=== PATIENT | female | born 1990 | race African-American/Black ===

== ENCOUNTER 2017-04-23 07:41 | Emergency (ER) | payer MEDICAID | END 2017-04-23 09:58 | disposition home or self-care (01) | LOC: D.ER 07:41 | DX: J06.9 Acute upper respiratory infection, unspecified (principal); H66.91 Otitis media, unspecified, right ear; F17.200 Nicotine dependence, unspecified, uncomplicated ==

== ENCOUNTER 2017-12-05 21:05 | Emergency (ER) | payer MEDICAID ==
[~2017-12-05] VITALS: Ht 162.6 cm; Wt 68.2 kg
[2017-12-05 21:29] VITALS: Ht 162.6 cm; Wt 68.2 kg
[2017-12-05 21:55] LABS: BASOPHILS 0.9 % (0-2); EOSINOPHILS 4.9 % (0-7); HEMATOCRIT 38.6 % (36.0-48.0); HEMOGLOBIN 12.7 g/dL (12-16); IMMATURE GRANULOCYTES 0.2 % (0-5); LYMPHOCYTES 48.1 % (15-50); MCH 30.8 pg (26.0-34.0); MCHC 32.9 g/dL (31.0-37.0); MCV 93.5 fL (80.0-100.0); MONOCYTES 7.9 % (2-11); PLATELET COUNT 226 10x3/uL (130-400); RBC 4.13 10x6/uL (4.00-5.40); WBC 5.7 10x3/uL (4.8-10.8)
[2017-12-05 22:00] LABS: HCG SERUM POSITIVE (NEGATIVE)
[2017-12-05 22:04] LABS: APPEARANCE CLOUDY (CLEAR); BILIRUBIN NEGATIVE (NEGATIVE); COLOR PINK (YELLOW); GLUCOSE NEGATIVE (NEGATIVE); KETONE NEGATIVE (NEGATIVE); NITRITE NEGATIVE (NEGATIVE); PROTEIN NEGATIVE (NEGATIVE); UROBILINOGEN NORMAL (NORMAL)
[2017-12-05 22:08] LABS: BACTERIA MODERATE /hpf (NONE SEEN); RED CELLS - URINE >50 /hpf (0-5)
[2017-12-05 22:09] LABS: ALBUMIN 3.7 g/dL (3.4-5.0); ALKALINE PHOSPHATASE 61 U/L (46-116); ALT (SGPT) 16 U/L (10-68); CALC OSMOLALITY 277 mosm/kg (275-300); CALCIUM 8.7 mg/dL (8.5-10.1); CARBON DIOXIDE 30.3 mmol/L (21.0-32.0); CHLORIDE - SERUM 104 mmol/L (98-107); CREATININE - SERUM 0.9 mg/dL (0.6-1.3); GLUCOSE 82 mg/dL (74-106); PROTEIN - SERUM 7.8 g/dL (6.4-8.2); SODIUM 139 mmol/L (136-145); UREA NITROGEN 16 mg/dL (7-18); eGFR NON AFRICAN AMERICAN 79 mL/min (90-120)
[2017-12-05 23:48] VITALS: BP 127/89
== END 2017-12-05 23:49 | disposition home or self-care (01) ==
LOC: D.ER 21:05
PROVIDERS: Family Medicine
DX: O03.9 Complete or unspecified spontaneous abortion without complication (principal)

== ENCOUNTER 2017-12-24 20:27 | Emergency (ER) | payer MEDICAID ==
[~2017-12-24] VITALS: Ht 162.6 cm; Wt 68.2 kg
[2017-12-24 20:53] VITALS: Ht 162.6 cm; Wt 68.2 kg
[2017-12-24 22:00] LABS: APPEARANCE CLEAR (CLEAR); BILIRUBIN NEGATIVE (NEGATIVE); COLOR YELLOW (YELLOW); GLUCOSE NEGATIVE (NEGATIVE); KETONE NEGATIVE (NEGATIVE); NITRITE NEGATIVE (NEGATIVE); PROTEIN TRACE mg/dL (NEGATIVE); UROBILINOGEN NORMAL (NORMAL)
[2017-12-24 22:01] LABS: BACTERIA MANY /hpf (NONE SEEN); EPITHELIAL CELLS 0-5 /hpf (0-5); MUCUS <1+ /lpf (NONE SEEN)
[2017-12-24 22:07] LABS: BASOPHILS 0.5 % (0-2); EOSINOPHILS 5.6 % (0-7); HEMATOCRIT 35.9 % (36.0-48.0); HEMOGLOBIN 11.9 g/dL (12-16); IMMATURE GRANULOCYTES 0.2 % (0-5); LYMPHOCYTES 48.8 % (15-50); MCH 30.9 pg (26.0-34.0); MCHC 33.1 g/dL (31.0-37.0); MCV 93.2 fL (80.0-100.0); MEAN PLATELET VOLUME 10.5 fL (7.4-10.4); MONOCYTES 7.3 % (2-11); NEUTROPHILS 37.6 % (40-80); PLATELET COUNT 227 10x3/uL (130-400); RBC 3.85 10x6/uL (4.00-5.40); RDW 13.5 % (11.5-14.5); WBC 6.5 10x3/uL (4.8-10.8)
[2017-12-24 22:28] LABS: HCG SERUM POSITIVE (NEGATIVE)
[2017-12-24 22:30] LABS: ALBUMIN 3.6 g/dL (3.4-5.0); ANION GAP 7.8 mmol/L (8-16); BILIRUBIN - TOTAL 0.31 mg/dL (0.2-1.3); CARBON DIOXIDE 30.3 mmol/L (21.0-32.0); CREATININE - SERUM 1.2 mg/dL (0.6-1.3); POTASSIUM - SERUM 4.1 mmol/L (3.5-5.1); PROTEIN - SERUM 7.3 g/dL (6.4-8.2)
[2017-12-24] MEDS ORDERED: FLAGYL500 MG PO (23:32)
[2017-12-24] MEDS ORDERED: MACROBID100 MG PO (23:32)
[2017-12-25 01:25] VITALS: BP 124/77
== END 2017-12-25 01:27 | disposition home or self-care (01) ==
LOC: D.ER 20:27
PROVIDERS: Emergency Medicine
DX: O03.9 Complete or unspecified spontaneous abortion without complication (principal)

== ENCOUNTER 2018-05-26 10:32 | Emergency (ER) | payer MEDICAID ==
[~2018-05-26] VITALS: Ht 162.6 cm; Wt 66.4 kg
[~2018-05-26 10:32] MED LIST: FLAGYL500 MG PO; MACROBID100 MG PO
[2018-05-26 10:47] VITALS: BP 112/66; Ht 162.6 cm; Wt 66.4 kg
[2018-05-26] MEDS ORDERED: NEURONTIN 300300 MG PO (13:11)
[2018-05-26] MEDS ORDERED: TORADOL10 MG PO (13:11)
== END 2018-05-26 13:32 | disposition home or self-care (01) ==
LOC: D.ER 10:32
DX: M54.16 Radiculopathy, lumbar region (principal); F17.200 Nicotine dependence, unspecified, uncomplicated

== ENCOUNTER 2018-08-16 14:38 | Emergency (ER) | payer MEDICAID ==
[~2018-08-16] VITALS: Ht 162.6 cm; Wt 68.2 kg
[~2018-08-16 14:38] MED LIST changes: +NEURONTIN 300300 MG PO; +TORADOL10 MG PO
[2018-08-16 14:48] VITALS: BP 109/67; Ht 162.6 cm; Wt 68.2 kg
[2018-08-16] MEDS ORDERED: PRENAVITE1 TAB PO (14:54)
== END 2018-08-16 17:10 | disposition home or self-care (01) ==
LOC: D.ER 14:38
DX: O26.891 Other specified pregnancy related conditions, first trimester (principal); Z3A.11 11 weeks gestation of pregnancy; K59.00 Constipation, unspecified

== ENCOUNTER 2019-01-25 16:09 | Inpatient (IN) | payer MEDICAID ==
[~2019-01-25] VITALS: Ht 162.6 cm; Wt 68.2 kg
[~2019-01-25 16:09] MED LIST changes: +PRENAVITE1 TAB PO
[2019-01-25 16:59] LABS: BASOPHILS 0.3 % (0-2); HEMATOCRIT 35.4 % (36.0-48.0); IMMATURE GRANULOCYTES 0.2 % (0-5); LYMPHOCYTES 47.3 % (15-50); MCH 30.2 pg (26.0-34.0); MCHC 33.9 g/dL (31.0-37.0); MCV 89.2 fL (80.0-100.0); MEAN PLATELET VOLUME 11.4 fL (7.4-10.4); MONOCYTES 7.9 % (2-11); NEUTROPHILS 39.3 % (40-80); PLATELET COUNT 204 10x3/uL (130-400); RBC 3.97 10x6/uL (4.00-5.40); RDW 13.9 % (11.5-14.5); WBC 6.1 10x3/uL (4.8-10.8)
[2019-01-25 17:11] LABS: ALBUMIN 3.6 g/dL (3.4-5.0); ALKALINE PHOSPHATASE 65 U/L (46-116); ALT (SGPT) 17 U/L (10-68); CALC OSMOLALITY 277 mosm/kg (275-300); CARBON DIOXIDE 27.8 mmol/L (21.0-32.0); CHLORIDE - SERUM 104 mmol/L (98-107); CREATININE - SERUM 0.8 mg/dL (0.6-1.3); GLUCOSE 94 mg/dL (74-106); PROTEIN - SERUM 7.3 g/dL (6.4-8.2); SODIUM 138 mmol/L (136-145); UREA NITROGEN 17 mg/dL (7-18); eGFR NON AFRICAN AMERICAN 90 mL/min (90-120)
[2019-01-25 17:15] LABS: AMYLASE - SERUM 87 U/L (25-115); LIPASE 89 U/L (73-393); TROPONIN-I < 0.017 ng/mL (0.000-0.060)
[2019-01-25 17:26] LABS: APPEARANCE CLEAR (CLEAR); BILIRUBIN NEGATIVE (NEGATIVE); COLOR YELLOW (YELLOW); GLUCOSE NEGATIVE (NEGATIVE); KETONE NEGATIVE (NEGATIVE); NITRITE NEGATIVE (NEGATIVE); PROTEIN NEGATIVE (NEGATIVE); UROBILINOGEN NORMAL (NORMAL)
[2019-01-25 17:28] LABS: BACTERIA FEW /hpf (NEGATIVE); EPITHELIAL CELLS 0-5 /hpf (0-5); RED CELLS - URINE OCC /hpf (0-5); WHITE CELLS - URINE OCC /hpf (NEGATIVE)
[2019-01-25 17:41] LABS: HCG URINE NEGATIVE (NEGATIVE)
--- NOTE | 2019-01-25 18:30 | NUR ---
ASSUMED CARE OF PT. LABS DRAWN WHILE PT AWAITING BED IN WR
[2019-01-25 18:45] VITALS: BP 127/84
--- NOTE | 2019-01-25 19:11 | NUR ---
BS REPORT TO LELA BELLAMY
--- NOTE | 2019-01-25 22:07 | NUR ---
PATIENT IN BED WRAPPED IN BLANKETS CRYING, REASSURANCE GIVEN. NO DISTRESS AT THIS TIME. PATIETN TALKING TO HER FAMILY ON PHONE, NO ACUTE DISTRESS.
[2019-01-26 02:22] VITALS: BP 118/64; BMI 25.8
--- NOTE | 2019-01-26 02:30 | NUR ---
PT ARRIVED TO FLOOR AOX4, NO SIGNS OF DISTRESS. STATES NO PAIN AT THIS TIME BUT ORIGINALLY CAME IN FOR ABD PAIN TO RIGHT SIDE. IV RIGHT AC, FLUSHES EASILY. STARTED INFUSING NS @ 100 AND MERREM IVPB. EDUCATED PT ON BEING NPO, PT SCARED SHE IS GOING TO HAVE SURGERY. REASSURED PT THAT THERE WAS NO SURGERY SCHEDULED AND SHE WILL SPEAK WITH SURGEON IN MORNING. VERBALIZED UNDERSTANDING. ORIENTED TO CALL LIGHT. PT AMBULATED INDEPENDENTLY WITHOUT DIFFICULTY TO BATHROOM TO VOID. DENIES NEEDS. LYING ON STOMACH WITH BLANKET OVER HEAD STATING SHE IS TIRED AND GOING TO SLEEP. CL IN REACH, WILL CTM
[2019-01-26 06:00] VITALS: BP 98/55
[2019-01-26 06:34] LABS: INR 0.97 (0.85-1.17); PROTIME 12.4 SECONDS (11.6-15.0)
[2019-01-26 06:43] LABS: BASOPHILS 0.4 % (0-2); CALC OSMOLALITY 281 mosm/kg (275-300); CALCIUM 8.5 mg/dL (8.5-10.1); CARBON DIOXIDE 27.5 mmol/L (21.0-32.0); CHLORIDE - SERUM 107 mmol/L (98-107); CREATININE - SERUM 0.7 mg/dL (0.6-1.3); EOSINOPHILS 6.2 % (0-7); GLUCOSE 80 mg/dL (74-106); HEMATOCRIT 35.3 % (36.0-48.0); IMMATURE GRANULOCYTES 0.2 % (0-5); LYMPHOCYTES 43.5 % (15-50); MCH 30.1 pg (26.0-34.0); MCV 88.5 fL (80.0-100.0); MEAN PLATELET VOLUME 11.6 fL (7.4-10.4); MONOCYTES 10.1 % (2-11); NEUTROPHILS 39.6 % (40-80); PLATELET COUNT 219 10x3/uL (130-400); POTASSIUM - SERUM 4.1 mmol/L (3.5-5.1); RBC 3.99 10x6/uL (4.00-5.40); RDW 13.8 % (11.5-14.5); SODIUM 142 mmol/L (136-145); WBC 4.8 10x3/uL (4.8-10.8); eGFR NON AFRICAN AMERICAN > 90 mL/min (90-120)
[2019-01-26 06:44] LABS: UREA NITROGEN 12 mg/dL (7-18)
[2019-01-26 08:57] VITALS: BP 101/65
[2019-01-26 10:24] VITALS: Ht 162.6 cm; Wt 68.2 kg
[2019-01-26] MEDS ORDERED: HYDROCODON-ACE1 EA10 PO (11:29)
[2019-01-26 12:31] VITALS: BP 126/61
--- NOTE | 2019-01-26 12:37 | NUR ---
REC'D BACK FROM SURGERY AT THIS TIME. RESP EVEN AND UNLABORED WITH NO DISTRESS NOTED. CAN EXPRESS NEEDS AND WANTS. C/O PAIN RATING 10/10. ON PAIN SCALE. DRESSING CLEAN DRY AND INTACT TO ABD. C/L IN REACH AT BEDSIDE.
--- NOTE | 2019-01-26 13:23 | OP ---
PATIENT NAME: OVIDIO SAHA MEDICAL RECORD: [id number] :88 LOCATION:[id number] ADMISSION DATE:01/25/19 SURGEON: MONROE ROCHA MD DATE OF OPERATION: 01/26/2019 PREOPERATIVE DIAGNOSIS: Acute appendicitis with localized peritonitis. POSTOPERATIVE DIAGNOSIS: Acute appendicitis with localized peritonitis. PROCEDURE: Laparoscopic appendectomy. SURGEON: Monroe Rocha MD REPORT OF PROCEDURE: The patient's abdomen was prepped and draped in sterile fashion. A cutdown was made on the superior aspect of the umbilicus, 0 Vicryls were placed in the fascia bilaterally and the fascia was incised with 15-blade. I then bluntly entered the peritoneal cavity and placed a 12-mm Keyon port. Under direct visualization, a 5-mm trocar in the left lower quadrant and another was in the suprapubic region. The patient's appendix was easily visualized. There were some mild inflammatory changes with some distention noted. There was no sign of any perforation or gangrene. The base of the appendix was elevated and we made a window in the mesoappendix. The appendix was transected at its base using a 45 blue load Endo-АННА stapler. The mesoappendix was then transected with a 45 white load Endo GI stapler. There was some bleeding from the staple line, which was treated with electrocautery. We then irrigated out the pelvis, right lower quadrant and right upper quadrant and saw no signs of any bleeding or bile leakage. At this point, the ports and insufflation were then removed and the appendix was taken out in an EndoCatch bag through the umbilicus. The umbilical fascia was closed with interrupted 0 Vicryls times 3. The wounds were then irrigated out with normal saline and infused with 10 mL of 0.25% Marcaine with epinephrine. The skin incisions were all closed with subcutaneous 5-0 Monocryl and dressed appropriately. COMPLICATIONS: None. CONDITION: Stable. ANESTHESIA: General endotracheal and local. BLOOD LOSS: Minimal. TRANSINT:[id number] Voice Confirmation ID: [id number] DOCUMENT ID: [id number] MONROE ROCHA MD at 1323 CC: [id number] DICTATION DATE: 01/26/19 1125 SAFETY OFFICER: 01/26/19 1135 ADM IN [facility] [address] [place] [address]
--- NOTE | 2019-01-26 17:22 | NUR ---
DC HOME AT THIS TIME VOICE UNDERSTANDING OF DC ORDERS. IV DC WITH TIP INTACT. FAMILY AT BEDSIDE. STABLE CONDITION UPON DEPARTURE.
--- NOTE | 2019-01-27 16:38 | DS ---
PATIENT:OVIDIO SAHA :88 MEDICAL RECORD: [id number] DISCHARGE SUMMARY ADMISSION DATE: 01/25/19 DISCHARGE DATE: 01/26/19 PRINCIPAL DIAGNOSES: Acute appendicitis with localized peritonitis, path pending. PROCEDURE: Laparoscopic appendectomy. HOSPITAL COURSE: The patient was admitted through the Emergency Room. She was started on intravenous antibiotics. A CT scan suggested that the patient might have acute appendicitis. The patient underwent laparoscopic appendectomy by Dr. Rocha and was dismissed home with hydrocodone for analgesia. She is to follow up with Dr. Rocha in the office. TRANSINT:[id number] Voice Confirmation ID: [id number] DOCUMENT ID: [id number] CHECO PLAZA MD at 1638 CC: FAN ROCHA [id number] DICTATION DATE: 01/26/19 1141 SET UP OPERATOR: 01/27/19 0106 DIS IN 01/26/19 [facility] [address] [place] [address]
== END 2019-01-26 17:24 | disposition home or self-care (01) | DRG 343 ==
LOC: D.ER 16:09 → D.MS 23:41
PROVIDERS: Emergency Medicine; Family Medicine; ADMIT Surgery; ATTEND Surgery
PROC: 0DTJ4ZZ Resection of Appendix, Percutaneous Endoscopic Approach (ICD-10-PCS; principal; 2019-01-25)
DX: K35.30 Acute appendicitis with localized peritonitis, without perforation or gangrene (principal); I10 Essential (primary) hypertension